=== PATIENT | female | born 1945 | race Caucasian/White ===

== ENCOUNTER → 2017-07-04 | Outpatient (CLI) | payer MEDICARE, OTHER ==
[~2017-07-04] MED LIST: Advil200 M1; Aspirin EC81 MG; B-125000 MC2 PO; CELE200 PO; CIPR500 PO; LEVSOD100 PO; Multiple Vitam1 EAC1 PO; PANT40 PO; ROSU10TA PO; SERT100 PO; VITAMIN D5000 UNIT PO; Valtrex1000 MG PO; Vitamin E400 UNI4
== END | disposition home or self-care (01) ==
LOC: LAB EV 13:20
DX: N39.0 Urinary tract infection, site not specified (principal)
CPT/HCPCS: 87077; 87086; 87186

== ENCOUNTER → 2017-08-03 | Outpatient (CLI) | payer MEDICARE, OTHER ==
[2017-08-03 14:06] LABS: Source, Urine Clean Catch
[2017-08-03 14:25] LABS: Bacteria Mod /hpf; Mucus Light (0-Heavy); Squamous Epithelial Cells Many /hpf (Few)
== END | disposition home or self-care (01) ==
LOC: LAB EV 14:04 → LAB SHORT 14:04
PROVIDERS: General Practice
DX: R30.0 Dysuria (principal)
CPT/HCPCS: 81015; 87077; 87086; 87186

== ENCOUNTER → 2017-08-22 | Outpatient (CLI) | payer MEDICARE, OTHER | LOC: LAB SHORT 14:43 → LAB EV 14:43 | DX: R30.0 Dysuria (principal) | CPT/HCPCS: 87086 ==

== ENCOUNTER → 2017-10-01 | Outpatient (CLI) | END | disposition home or self-care (01) ==

== ENCOUNTER → 2018-04-24 | Outpatient (CLI) | payer MEDICARE, OTHER ==
[2018-04-25 09:27] LABS: Candida species (DNA Probe) Negative (NEGATIVE); G. vaginalis (DNA Probe) Negative (NEGATIVE); T. vaginalis (DNA Probe) Negative (NEGATIVE)
== END | disposition home or self-care (01) ==
LOC: LAB EV 13:18 → LAB SHORT 13:18
PROVIDERS: Physician Assistant
DX: N76.0 Acute vaginitis (principal)
CPT/HCPCS: 87077; 87086; 87186; 87480; 87510; 87660

== ENCOUNTER 2018-05-31 09:44 | Day surgery (SDC) | payer MEDICARE, OTHER ==
[~2018-05-31] VITALS: Ht 165.1 cm; Wt 99.3 kg
[~2018-05-31 09:44] MED LIST changes: +Ambien5 MG PO; +Aspirin EC81 MG PO; +Neurontin300 MG PO; +ROSU5 PO
[2018-05-31] MEDS ORDERED: NITR100CA (10:59)
== END 2018-05-31 12:15 | disposition home or self-care (01) ==
LOC: ORSCSDS 09:44
PROVIDERS: Internal Medicine Gastroenterology
PROC: 0DBL8ZX Excision of Transverse Colon, Via Natural or Artificial Opening Endoscopic, Diagnostic (ICD-10-PCS; principal; 2018-05-31 11:00)
DX: Z86.010 Personal history of colon polyps (principal); D12.3 Benign neoplasm of transverse colon; K64.8 Other hemorrhoids; K57.30 Diverticulosis of large intestine without perforation or abscess without bleeding; G47.33 Obstructive sleep apnea (adult) (pediatric); M79.7 Fibromyalgia; E03.9 Hypothyroidism, unspecified; F32.9 Major depressive disorder, single episode, unspecified; K76.0 Fatty (change of) liver, not elsewhere classified; G25.81 Restless legs syndrome; Z79.82 Long term (current) use of aspirin; Z79.899 Other long term (current) drug therapy
CPT/HCPCS: 88305; J7120

== ENCOUNTER → 2018-06-06 | Outpatient (CLI) | payer MEDICARE, OTHER ==
[~2018-06-06] MED LIST changes: +NITR100CA
[2018-06-06 11:07] LABS: Source, Urine Clean Catch
[2018-06-06 11:20] LABS: Appearance, Urine Clear (Clear); Bilirubin, Urine Neg (Neg); Blood, Urine 1+ (Neg); Color, Urine Yellow (P-Yellow); Glucose Qualitative, Urine Neg (Normal); Ketones, Urine Neg (Neg); Leukocyte Esterase, Urine Neg (Neg); Nitrite, Urine Neg (Neg); Protein, Urine Neg (Neg); Specific Gravity, Urine 1.015 (1.003-1.022); Urobilinogen, Urine NORM (Normal); pH, Urine 6.5 (5.0-8.0)
[2018-06-06 11:26] LABS: White Blood Cells, Urine 0-2 /hpf (0-5)
[2018-06-06 11:27] LABS: Bacteria Not Seen /hpf; Squamous Epithelial Cells Few /hpf (Few)
== END | disposition home or self-care (01) ==
LOC: LAB EV 10:50 → LAB FUT 06-04 13:00 → EDSTATUS 06-04 13:00
PROVIDERS: Physician Assistant
DX: R31.21 Asymptomatic microscopic hematuria (principal); Z87.440 Personal history of urinary (tract) infections
CPT/HCPCS: 81001; 87077; 87086; 87186

== ENCOUNTER → 2018-07-11 | Outpatient (CLI) | payer MEDICARE, OTHER | END | disposition home or self-care (01) | LOC: LAB SHORT 11:38 → LAB 11:38 | DX: R30.0 Dysuria (principal) | CPT/HCPCS: 87086 ==

== ENCOUNTER → 2018-08-12 | Outpatient (CLI) | payer MEDICARE, OTHER | END | disposition home or self-care (01) | LOC: LAB SHORT 15:40 → PLD 15:40 | DX: D22.72 Melanocytic nevi of left lower limb, including hip (principal) | CPT/HCPCS: 88305 ==

== ENCOUNTER → 2018-08-19 | Outpatient (CLI) | payer MEDICARE, OTHER | END | disposition home or self-care (01) | LOC: PLD 15:50 → LAB SHORT 15:50 | DX: D17.22 Benign lipomatous neoplasm of skin and subcutaneous tissue of left arm (principal) | CPT/HCPCS: 88304 ==

== ENCOUNTER 2018-10-22 05:57 | Inpatient (IN) | payer MEDICARE, OTHER ==
[~2018-10-22] VITALS: Ht 162.6 cm; Wt 108.0 kg
[~2018-10-22 05:57] MED LIST changes: +VALACYCLOVIR1000 MG PO; +VITAMIN B122500 MC1 PO; +[UNRECOGNIZED DRUG - CODE] PO; +[UNRECOGNIZED DRUG - OTHER] PO
[2018-10-22] MEDS ORDERED: TRAZ50 PO (06:44)
--- NOTE | 2018-10-22 06:58 | NUR ---
History, Chart, Medications and Allergies reviewed before start of procedure. Lungs clear T/O to Auscultation. Patient confirms NPO status and agrees with scheduled surgery. Pre-Op teaching done. Pt verbalizes understanding.
--- NOTE | 2018-10-22 14:20 | NUR ---
DRESSING: PT UP TO WORK WITH PHYSICAL THERAPY. AQUACEL DRESSING SATURATED, CHANGED TO PRESSURE DRESSING PT IS NOTED TO HAVE 2 OOZING SPOTS ON INCISION. PT CLEANED AND NEW LINUS HOSE AND SOCKS PLACED. PT IN RECLINER AFTER THERAPY. POLAR PACK ON. WILL CONT TO MONITOR DRAINAGE.
--- NOTE | 2018-10-22 17:37 | NUR ---
PT HAS BEEN HYPOTENSIVE WITHOUT SYMPTOMS POST OP. PT WORKED WELL WITH THERAPY TO GET UP TO CHAIR AND AMBULATE. PAIN MANAGED WITH SCHEDULED AND PRN MEDS. PT NEERU DIET WELL. HAS NOT VOIDED POST SPINAL ANESTHESIA THIS SHIFT. CONT IV FLUIDS ORDERED. DRESSING CHANGED X1 FOR OOZING POST OP. LABS TO BE DRAWN FOR AM. PAS, TEDS AND POLAR PACK IN PLACE. USES CALL LIGHT APPROPRIATELY NEEDED.
[2018-10-23 04:53] LABS: BASOPHILS ABSOLUTE AUTO 0.09 K/mm3 (0.00-0.23); BASOPHILS PERCENT AUTO 0 % (0-2); EOSINOPHILS ABSOLUTE AUTO 0.06 K/mm3 (0.00-0.68); EOSINOPHILS PERCENT AUTO 0 % (0-6); Hematocrit 31.3 % (33.0-51.0); Hemoglobin 10.4 g/dL (11.5-16.0); IMMATURE GRAN ABSOLUTE AUTO 0.08 K/mm3 (0.00-0.10); IMMATURE GRAN PERCENT AUTO 0 % (0-1); Mean Corpuscular HGB 30.1 pg (26.0-34.0); Mean Corpuscular HGB Conc 33.2 g/dL (31.5-36.5); Mean Corpuscular Volume 91 fL (80-100); Mean Platelet Volume 10.5 fL (9.1-12.4); NEUTROPHILS ABSOLUTE AUTO 7.07 K/mm3 (1.96-9.15); NEUTROPHILS PERCENT AUTO 20 % (41-73); NRBC ABSOLUTE 0.03 K/mm3 (0.00-0.02); NRBC Auto 0.1 /100 WBC (0.0-0.2); Platelet Count 141 K/mm3 (150-400); RDW Coefficient Variation 13.2 % (11.7-14.2); RDW Standard Deviation 43.7 fL (35.1-46.3); Red Blood Cell Count 3.46 M/mm3 (3.80-5.20); White Blood Cell Count 36.29 K/mm3 (4.00-11.30)
[2018-10-23 04:54] LABS: LYMPHOCYTES ABSOLUTE AUTO 26.71 K/mm3 (0.84-5.20); LYMPHOCYTES PERCENT AUTO 74 % (21-46); MONOCYTES ABSOLUTE AUTO 2.28 K/mm3 (0.16-1.47); MONOCYTES PERCENT AUTO 6 % (4-13)
[2018-10-23 05:09] LABS: Anion Gap 3 mmol/L (6-16); Blood Urea Nitrogen 26 mg/dL (8-24); Bun/Creatinine Ratio 31.9 (12.0-20.0); CO2, Blood 28 mmol/L (21-32); Calcium, Blood 8.4 mg/dL (8.5-10.1); Chloride, Blood 110 mmol/L (98-108); Creatinine, Blood 0.82 mg/dL (0.40-1.00); Glomerular Filtration Rate >60 (60-); Glucose, Blood 139 mg/dL (70-99); Magnesium, Blood 2.3 mg/dL (1.6-2.4); Potassium, Blood 4.1 mmol/L (3.5-5.5); Sodium, Blood 141 mmol/L (136-145)
--- NOTE | 2018-10-23 05:58 | NUR ---
SHIFT SUMMARY PT RESTED WELL T/O NIGHT. AAOX4. DISCOMFORT CONTROLLED WITH SCHEDULED TYLENOL / TORADOL + 10MG ROXICODONE Q4-5P. NO NAUSEA/EMESIS. DRESSING TO LEFT HIP C/D/I T/O NIGHT. PT UP TO RESTROOM FREQUENTLY, GOOD PO INTAKE + OUTPUT. IV ABX COMPLETED PER ORDERS. PT RESTING WELL THIS AM. CALL LIGHT IN REACH + PT USES FOR ASSISTANCE.
[2018-10-23 06:16] LABS: BASOPHILS PERCENT MAN 0 % (0-2); EOSINOPHILS PERCENT MAN 0 % (0-6); LYMPHOCYTES ABSOLUTE MAN 27.58 K/mm3 (0.84-5.20); LYMPHOCYTES PERCENT MAN 76 % (21-46); MONOCYTES ABSOLUTE MAN 1.08 K/mm3 (0.16-1.47); MONOCYTES PERCENT MAN 3 % (4-13); NEUTROPHILS ABSOLUTE MAN 7.62 K/mm3 (1.96-9.15); SEG NEUTROPHILS PERCENT MAN 21 % (41-73); TOTAL CELLS COUNTED 100
[2018-10-23] MEDS ORDERED: OXYC5 PO (17:35)
[2018-10-23] MEDS ORDERED: ASPI325 PO (17:35)
--- NOTE | 2018-10-23 17:55 | NUR ---
DISCHARGE CLEARED THERAPY, TOELRATING DIET, STEADY GAIT. SCRIPTS & DRSGS GIVEN. ESCORTED OUT VIA W/C.
== END 2018-10-23 17:55 | disposition home or self-care (01) | DRG 470 ==
LOC: SURS 05:57 → PRE IP 07:30 → SURS 12:20
PROVIDERS: ADMIT Orthopaedic Surgery
PROC: 0SRB0JA Replacement of Left Hip Joint with Synthetic Substitute, Uncemented, Open Approach (ICD-10-PCS; principal; 2018-10-22 07:30)
DX: M16.12 Unilateral primary osteoarthritis, left hip (principal); Z68.41 Body mass index [BMI] 40.0-44.9, adult; E03.9 Hypothyroidism, unspecified; M79.7 Fibromyalgia; G47.33 Obstructive sleep apnea (adult) (pediatric); G25.81 Restless legs syndrome; F32.9 Major depressive disorder, single episode, unspecified; E66.01 Morbid (severe) obesity due to excess calories; Z79.82 Long term (current) use of aspirin; Z88.8 Allergy status to other drugs, medicaments and biological substances
CPT/HCPCS: 36415; 72170; 80048; 83735; 85025; 88300; 97110; 97116; 97162; 97165; 97530; 97535; C1713; C1776; J0171; J0690; J0735; J1100; J1885; J2250; J2405; J2704; J2795; J3010; J7120

== ENCOUNTER → 2019-01-25 | Outpatient (CLI) | payer MEDICARE, OTHER ==
[~2019-01-25] MED LIST changes: +ASPI325 PO; +OXYC5 PO; +TRAZ50 PO
[2019-01-25 14:07] LABS: Adenovirus F 40/41 Not Detected (NOT DETECT); Astrovirus Not Detected (NOT DETECT); Campylobacter Sp Not Detected (NOT DETECT); Cryptosporidium Not Detected (NOT DETECT); Cyclospora Cayetanensis Not Detected (NOT DETECT); E. Coli O157 Not Detected (NOT DETECT); Entamoeba Histolytica Not Detected (NOT DETECT); Enteroaggregative E. coli-EAEC Not Detected (NOT DETECT); Enteropathogenic E. coli-EPEC Not Detected (NOT DETECT); Enterotoxigenic E. coli-ETEC Not Detected (NOT DETECT); Giardia Lamblia Not Detected (NOT DETECT); Norovirus GI/GII Not Detected (NOT DETECT); Plesiomonas Shigelloides Not Detected (NOT DETECT); Rotavirus A Not Detected (NOT DETECT); Salmonella Sp Not Detected (NOT DETECT); Sapovirus Not Detected (NOT DETECT); Shiga Toxin-prod E. coli-STEC Not Detected (NOT DETECT); Shigella/Enteroin E. coli-EIEC Not Detected (NOT DETECT); Vibrio Cholerae Not Detected (NOT DETECT); Vibrio Sp Not Detected (NOT DETECT); Yersinia Enterocolitica Not Detected (NOT DETECT)
== END | disposition home or self-care (01) ==
LOC: OLS 10:30 → LAB SHORT 10:30
DX: R19.7 Diarrhea, unspecified (principal)
CPT/HCPCS: 0097U

== ENCOUNTER → 2019-11-03 | Outpatient (CLI) | payer MEDICARE, OTHER ==
[2019-11-03 09:58] LABS: BASOPHILS ABSOLUTE AUTO 0.04 K/mm3 (0.00-0.23); BASOPHILS PERCENT AUTO 1 % (0-2); EOSINOPHILS ABSOLUTE AUTO 0.12 K/mm3 (0.00-0.68); EOSINOPHILS PERCENT AUTO 2 % (0-6); Hematocrit 41.4 % (33.0-51.0); Hemoglobin 14.4 g/dL (11.5-16.0); IMMATURE GRAN ABSOLUTE AUTO 0.02 K/mm3 (0.00-0.10); IMMATURE GRAN PERCENT AUTO 0 % (0-1); LYMPHOCYTES ABSOLUTE AUTO 2.47 K/mm3 (0.84-5.20); LYMPHOCYTES PERCENT AUTO 37 % (21-46); MONOCYTES ABSOLUTE AUTO 0.41 K/mm3 (0.16-1.47); MONOCYTES PERCENT AUTO 6 % (4-13); Mean Corpuscular HGB 28.7 pg (26.0-34.0); Mean Corpuscular HGB Conc 34.8 g/dL (31.5-36.5); Mean Corpuscular Volume 83 fL (80-100); Mean Platelet Volume 10.8 fL (9.1-12.4); NEUTROPHILS ABSOLUTE AUTO 3.69 K/mm3 (1.96-9.15); NEUTROPHILS PERCENT AUTO 55 % (41-73); Platelet Count 111 K/mm3 (150-400); RDW Coefficient Variation 12.8 % (11.7-14.2); RDW Standard Deviation 38.4 fL (35.1-46.3); Red Blood Cell Count 5.01 M/mm3 (3.80-5.20); White Blood Cell Count 6.75 K/mm3 (4.00-11.30)
[2019-11-03 10:05] LABS: Alanine Aminotransfer (ALT/SGP 25 U/L (12-78); Albumin, Blood 3.6 g/dL (3.4-5.0); Albumin/Globulin Ratio 1.2 (0.8-1.8); Alk Phos 57 U/L (50-136); Anion Gap 6 mmol/L (6-16); Aspartate Aminotrans (AST/SGOT 17 U/L (12-37); Blood Urea Nitrogen 17 mg/dL (8-24); Bun/Creatinine Ratio 24.7 (12.0-20.0); CO2, Blood 26 mmol/L (21-32); Calcium, Blood 8.5 mg/dL (8.5-10.1); Chloride, Blood 109 mmol/L (98-108); Creatinine, Blood 0.69 mg/dL (0.40-1.00); Globulin, Blood 2.9 g/dL (2.2-4.0); Glomerular Filtration Rate >60 (60-); Glucose, Blood 91 mg/dL (70-99); Potassium, Blood 4.2 mmol/L (3.5-5.5); Sodium, Blood 141 mmol/L (136-145); Total Protein, Blood 6.5 g/dL (6.4-8.2)
== END | disposition home or self-care (01) ==
LOC: LAB 09:36 → LAB SHORT 09:36
PROVIDERS: Registered Nurse Oncology
DX: C91.10 Chronic lymphocytic leukemia of B-cell type not having achieved remission (principal)
CPT/HCPCS: 80053; 85025

== ENCOUNTER 2021-12-27 08:16 | Day surgery (SDC) | payer MEDICARE, OTHER ==
[~2021-12-27] VITALS: Ht 162.6 cm; Wt 95.0 kg
[~2021-12-27 08:16] MED LIST changes: +Aspir 8181 MG PO; +CO Q10100 MG PO; +Celebrex200 MG PO; +D MANNOSE PO; +EUTHYROX125 MCG PO; +GABA300 PO; +Sinemet 25-1001 EACH PO
--- NOTE | 2021-12-27 14:36 | NUR ---
PT AND S/O VERBALIZES UNDERSTANDING WRITTEN AND VERBAL INSTRUCTIONS. VSS. NADN. PT IV DC'D. CATH INTACT. PRESSURE DSG APPLIED. PT SUPRAPUBIC SITE IS CLEAR. NO BLEEDING NOTED.PT DC TO HOME VIA S/O BY ADRIANA.
== END 2021-12-27 14:40 | disposition home or self-care (01) ==
LOC: MHTC 08:16
DX: R33.9 Retention of urine, unspecified (principal); G20 Parkinson's disease; I10 Essential (primary) hypertension; E78.5 Hyperlipidemia, unspecified; M19.90 Unspecified osteoarthritis, unspecified site; E03.9 Hypothyroidism, unspecified; Z88.8 Allergy status to other drugs, medicaments and biological substances; Z88.1 Allergy status to other antibiotic agents; Z79.82 Long term (current) use of aspirin; Z79.899 Other long term (current) drug therapy; Z79.890 Hormone replacement therapy
CPT/HCPCS: 51102; 76937; 99152; 99153; C1769; J2250; J3010; J7030; J7040; Q9967

== ENCOUNTER → 2022-04-10 | Outpatient (CLI) | payer MEDICARE, OTHER | LOC: LAB SHORT 12:00 → LAB 12:00 | DX: K13.79 Other lesions of oral mucosa (principal) | CPT/HCPCS: 87070; 87205 ==

== ENCOUNTER 2022-05-11 20:15 | Inpatient (IN) | payer MEDICARE ==
[~2022-05-11] VITALS: Ht 162.6 cm; Wt 72.6 kg
[2022-05-11 21:15] LABS: Albumin, Blood 2.3 g/dL (3.4-5.0); Bilirubin, Total 0.8 mg/dL (0.1-1.0); Bun/Creatinine Ratio 20.2 (12.0-20.0); Creatinine, Blood 0.5 mg/dL (0.40-1.00); Globulin, Blood 2.3 g/dL (2.2-4.0); Potassium, Blood 3.2 mmol/L (3.5-5.5); Total Protein, Blood 4.6 g/dL (6.4-8.2)
[2022-05-11 21:23] LABS: Hematocrit 36.8 % (33.0-51.0); RDW Coefficient Variation 12.3 % (11.7-14.2)
[2022-05-11 21:37] LABS: BASOPHILS ABSOLUTE AUTO 0.03 K/mm3 (0.00-0.23); BASOPHILS PERCENT AUTO 1 % (0-2); EOSINOPHILS ABSOLUTE AUTO 0.08 K/mm3 (0.00-0.68); EOSINOPHILS PERCENT AUTO 2 % (0-6); IMMATURE GRAN ABSOLUTE AUTO 0.04 K/mm3 (0.00-0.10); IMMATURE GRAN PERCENT AUTO 1 % (0-1); LYMPHOCYTES ABSOLUTE AUTO 0.86 K/mm3 (0.84-5.20); LYMPHOCYTES PERCENT AUTO 17 % (21-46); MONOCYTES ABSOLUTE AUTO 0.41 K/mm3 (0.16-1.47); MONOCYTES PERCENT AUTO 8 % (4-13); Mean Corpuscular HGB 29.1 pg (26.0-34.0); Mean Corpuscular HGB Conc 35.3 g/dL (31.5-36.5); Mean Corpuscular Volume 83 fL (80-100); NEUTROPHILS ABSOLUTE AUTO 3.53 K/mm3 (1.96-9.15); NEUTROPHILS PERCENT AUTO 71 % (41-73); RDW Standard Deviation 37.2 fL (35.1-46.3); Red Blood Cell Count 4.46 M/mm3 (3.80-5.20); White Blood Cell Count 4.95 K/mm3 (4.00-11.30)
[2022-05-11 21:40] LABS: Mean Platelet Volume 10.6 fL (9.1-12.4)
[2022-05-11 22:05] LABS: Platelet Count 110 K/mm3 (150-400)
[2022-05-11 23:28] LABS: Bicarbonate Venous 27.2 mmol/L (24.0-30.0); PCO2 Venous 35.6 mmHg (38-42); pH Blood Venous 7.48 (7.34-7.37)
[2022-05-12 00:35] LABS: Source, Urine Suprapubic Cath
[2022-05-12 00:50] LABS: Bilirubin, Urine Neg (Neg); Blood, Urine 3+ (Neg); Glucose Qualitative, Urine Neg (Neg); Ketones, Urine 2+ (Neg); Leukocyte Esterase, Urine 2+ (Neg); Nitrite, Urine Neg (Neg); Protein, Urine 1+ (Neg); Urobilinogen, Urine NORM (Normal)
[2022-05-12 01:05] LABS: Appearance, Urine Hazy (Clear); Color, Urine Pale Yellow (P-Yellow)
[2022-05-12 01:07] LABS: Amorphous Light (0-Heavy); Bacteria Many /hpf; Red Blood Cells, Urine 0-2 /hpf (0-2); Squamous Epithelial Cells Few /hpf (Few)
[2022-05-12 14:20] LABS: BASOPHILS ABSOLUTE AUTO 0.02 K/mm3 (0.00-0.23); BASOPHILS PERCENT AUTO 0 % (0-2); EOSINOPHILS ABSOLUTE AUTO 0.08 K/mm3 (0.00-0.68); EOSINOPHILS PERCENT AUTO 2 % (0-6); Hematocrit 37.8 % (33.0-51.0); Hemoglobin 13.6 g/dL (11.5-16.0); IMMATURE GRAN ABSOLUTE AUTO 0.03 K/mm3 (0.00-0.10); IMMATURE GRAN PERCENT AUTO 1 % (0-1); LYMPHOCYTES ABSOLUTE AUTO 0.78 K/mm3 (0.84-5.20); LYMPHOCYTES PERCENT AUTO 14 % (21-46); MONOCYTES ABSOLUTE AUTO 0.34 K/mm3 (0.16-1.47); MONOCYTES PERCENT AUTO 6 % (4-13); Mean Corpuscular HGB 28.9 pg (26.0-34.0); Mean Corpuscular Volume 80 fL (80-100); Mean Platelet Volume 10.6 fL (9.1-12.4); NEUTROPHILS ABSOLUTE AUTO 4.16 K/mm3 (1.96-9.15); NEUTROPHILS PERCENT AUTO 77 % (41-73); Platelet Count 139 K/mm3 (150-400); RDW Coefficient Variation 12.1 % (11.7-14.2); RDW Standard Deviation 35.3 fL (35.1-46.3); White Blood Cell Count 5.41 K/mm3 (4.00-11.30)
[2022-05-12 14:49] LABS: Albumin, Blood 2.9 g/dL (3.4-5.0); Bilirubin, Total 0.6 mg/dL (0.1-1.0); Bun/Creatinine Ratio 31.2 (12.0-20.0); Calcium, Blood 8.6 mg/dL (8.5-10.1); Creatinine, Blood 0.48 mg/dL (0.40-1.00); Globulin, Blood 2.9 g/dL (2.2-4.0); Potassium, Blood 3.7 mmol/L (3.5-5.5); Total Protein, Blood 5.8 g/dL (6.4-8.2)
[2022-05-12] MEDS ORDERED: ASPI81CH PO (16:24)
--- NOTE | 2022-05-12 18:53 | NUR ---
SHIFT SUMMARY- PT IS A X1 NURSE ASSIST-WEAK DUE TO PARKINSON'S-USES WALKER. PT HAS MODERATE PAIN DUE TO FALL 2 DAYS AGO. TORADOL, NORCO, AND TYLENOL ORDERED FOR PAIN. TESSLON PEARLS AND DELSYM ORDERED FOR COUGH. PAIN AND COUGH IMPROVING. SPC PATENT. GI PANEL CANCELED-PT HAD SOFT FORMED BM SMALL THIS SHIFT. PT AAOX4 THIS SHIFT.
[2022-05-13 05:52] LABS: BASOPHILS ABSOLUTE AUTO 0.02 K/mm3 (0.00-0.23); BASOPHILS PERCENT AUTO 1 % (0-2); EOSINOPHILS ABSOLUTE AUTO 0.19 K/mm3 (0.00-0.68); EOSINOPHILS PERCENT AUTO 4 % (0-6); Hematocrit 35.3 % (33.0-51.0); Hemoglobin 12.5 g/dL (11.5-16.0); IMMATURE GRAN ABSOLUTE AUTO 0.02 K/mm3 (0.00-0.10); IMMATURE GRAN PERCENT AUTO 1 % (0-1); LYMPHOCYTES PERCENT AUTO 18 % (21-46); MONOCYTES ABSOLUTE AUTO 0.46 K/mm3 (0.16-1.47); MONOCYTES PERCENT AUTO 10 % (4-13); Mean Corpuscular HGB 28.9 pg (26.0-34.0); Mean Corpuscular HGB Conc 35.4 g/dL (31.5-36.5); Mean Corpuscular Volume 82 fL (80-100); Mean Platelet Volume 10.1 fL (9.1-12.4); NEUTROPHILS ABSOLUTE AUTO 2.93 K/mm3 (1.96-9.15); NEUTROPHILS PERCENT AUTO 66 % (41-73); Platelet Count 152 K/mm3 (150-400); RDW Coefficient Variation 12.1 % (11.7-14.2); RDW Standard Deviation 36.7 fL (35.1-46.3); Red Blood Cell Count 4.32 M/mm3 (3.80-5.20); White Blood Cell Count 4.42 K/mm3 (4.00-11.30)
[2022-05-13 06:04] LABS: Bun/Creatinine Ratio 23.8 (12.0-20.0); Calcium, Blood 8.7 mg/dL (8.5-10.1); Creatinine, Blood 0.5 mg/dL (0.40-1.00); Potassium, Blood 3.7 mmol/L (3.5-5.5)
--- NOTE | 2022-05-13 06:52 | NUR ---
NEURO AOX4, pupils 4mm bilateral, brisk and PERLLA. Admitted for syncopy. Not dizzy while lying in bed, no ambulation during shift. Resp room air Lung sounds clear CV Telemetry Normal SR with episodes of tachycardia while awake GI Suprapubic prado in place with yellow clear urine. Prado bag changed dt to leakage. Skin skin intact
--- NOTE | 2022-05-13 17:41 | NUR ---
SHIFT SUMMARY: PATIENT A&OX4. PLEASANT AND COOPERATIVE c CARE. USES CALL LIGHT APPROPRIATELY AND ABLE TO ADVOCATE FOR HER NEEDS. AT BEGINNING OF SHIFT, PATIENT REPORTS OF NAUSEA BUT NO VOMITING. MEDICATED X1 c ZOFRAN 4 MG IV. PATIENT REPORTS OF ADEQUATE RELIEF. AT AROUND 0950'S PATIENT REPORTS OF NECK, BACK AND HIP PAIN /10. MEDICATED X1 c NORCO. PATIENT REPORTS OF ADEQUATE RELIEF PAIN DOWN 10. DENIES CP/CHEST DISCOMFORT. PATIENT WAS ON TELE SR IN THE 90'S BPM PER BUFFET SERVERABRAHAM. TELE WAS DC'D TODAY PER THERESE. PATIENT TOLERATED SITTING UP IN THE CHAIR FOR ABOUT 2 HRS AND REQUESTED TO BE BACK IN BED. PATIENT 1 ASSIST c FWW PIVOT TO CHAIR. PATIENT HAS CHRONIC SUPRAPUBIC CATHETER, PATENT DRAINING TO GRAVITY c YELLOW URINE. VITAL SIGNS REVIEWED. IV TO R WRIST SALINE LOCKED. BED ALARM ON FOR SAFETY. CALL LIGHT IN REACH.
--- NOTE | 2022-05-14 04:49 | NUR ---
A/OX4; CALM AND COOPERATIVE. 1X ASSIST WITH WALKER. SUPRAPUBIC CATH PATENT. BLANCHABLE REDNESS TO COCCYX; FREQUENT REPOSITIONING ENCOURAGED. C/O FEELING MILDLY NAUSEATED; DECLINED OFFERED ZOFRAN. C/O BACK, NECK, AND HIP PAIN; PRN NORCO GIVEN PER ORDERS. HELPFUL PER PATIENT. FLUIDS ENCOURAGED. SLEEP PROMOTED. BED ALARM SET. CALL LIGHT IN REACH; ENCOURAGED TO MAKE NEEDS KNOWN.
[2022-05-14 07:14] LABS: BASOPHILS ABSOLUTE AUTO 0.02 K/mm3 (0.00-0.23); BASOPHILS PERCENT AUTO 1 % (0-2); EOSINOPHILS ABSOLUTE AUTO 0.24 K/mm3 (0.00-0.68); EOSINOPHILS PERCENT AUTO 6 % (0-6); Hematocrit 35.1 % (33.0-51.0); Hemoglobin 12.4 g/dL (11.5-16.0); IMMATURE GRAN ABSOLUTE AUTO 0.02 K/mm3 (0.00-0.10); IMMATURE GRAN PERCENT AUTO 1 % (0-1); LYMPHOCYTES ABSOLUTE AUTO 1.06 K/mm3 (0.84-5.20); LYMPHOCYTES PERCENT AUTO 25 % (21-46); MONOCYTES ABSOLUTE AUTO 0.48 K/mm3 (0.16-1.47); MONOCYTES PERCENT AUTO 11 % (4-13); Mean Corpuscular HGB Conc 35.3 g/dL (31.5-36.5); Mean Corpuscular Volume 82 fL (80-100); Mean Platelet Volume 10.4 fL (9.1-12.4); NEUTROPHILS ABSOLUTE AUTO 2.51 K/mm3 (1.96-9.15); NEUTROPHILS PERCENT AUTO 58 % (41-73); Platelet Count 172 K/mm3 (150-400); RDW Coefficient Variation 12.3 % (11.7-14.2); RDW Standard Deviation 37.2 fL (35.1-46.3); Red Blood Cell Count 4.27 M/mm3 (3.80-5.20); White Blood Cell Count 4.33 K/mm3 (4.00-11.30)
[2022-05-14 07:23] LABS: Bun/Creatinine Ratio 33.7 (12.0-20.0); Calcium, Blood 8.7 mg/dL (8.5-10.1); Creatinine, Blood 0.48 mg/dL (0.40-1.00); Potassium, Blood 3.4 mmol/L (3.5-5.5)
--- NOTE | 2022-05-14 17:34 | NUR ---
SHIFT SUMMARY NO ACUTE CHANGES DURING SHIFT. PT ALERT AND ORIENTED, CALLS APPROPRIATELY. PT CONTINUES IV ABX, LEVAQUIN ADDED TODAY. FAMILY AT BEDSIDE THROUGHOUT DAY. POSSIBLE D/C TO FACILITY WHEN MEDICALLY CLEARED. WILL CONTINUE TO MONITOR. CALL LIGHT WITHIN REACH.
--- NOTE | 2022-05-15 03:24 | NUR ---
SHIFT SUMMARY: NO CHANGES THROUGHOUT SHIFT. PATIENT IS A&OX4. VS ARE WNL AND IS ON RA. PATIENT REPORTED 3/10 PAIN AT BEGINNING OF SHIFT AND HAS BEEN MANAGED WITH THE PRN NORCO. PATIENT IS A MINIMAL ASSIST WITH AMBULATION. HER SUPERPUBIC CHRONIC CATHETER IS DRAINING PER GRAVITY WITH NO KINKS IN TUBING. PATIENT IS TOLERATING PO INTAKE. PATIENT WILL CONTINUE TO HAVE PT AND IV ABX WELL PO LEVAQUIN. CALLS APPROPRIATELY. CALL LIGHT WITHIN REACH.
[2022-05-15 05:09] LABS: BASOPHILS ABSOLUTE AUTO 0.03 K/mm3 (0.00-0.23); BASOPHILS PERCENT AUTO 1 % (0-2); EOSINOPHILS ABSOLUTE AUTO 0.28 K/mm3 (0.00-0.68); EOSINOPHILS PERCENT AUTO 6 % (0-6); Hematocrit 36.3 % (33.0-51.0); Hemoglobin 12.8 g/dL (11.5-16.0); IMMATURE GRAN ABSOLUTE AUTO 0.02 K/mm3 (0.00-0.10); IMMATURE GRAN PERCENT AUTO 0 % (0-1); LYMPHOCYTES PERCENT AUTO 34 % (21-46); MONOCYTES ABSOLUTE AUTO 0.53 K/mm3 (0.16-1.47); MONOCYTES PERCENT AUTO 11 % (4-13); Mean Corpuscular HGB 28.7 pg (26.0-34.0); Mean Corpuscular HGB Conc 35.3 g/dL (31.5-36.5); Mean Corpuscular Volume 81 fL (80-100); NEUTROPHILS ABSOLUTE AUTO 2.27 K/mm3 (1.96-9.15); NEUTROPHILS PERCENT AUTO 48 % (41-73); Platelet Count 192 K/mm3 (150-400); RDW Standard Deviation 35.7 fL (35.1-46.3); Red Blood Cell Count 4.46 M/mm3 (3.80-5.20); White Blood Cell Count 4.73 K/mm3 (4.00-11.30)
[2022-05-15 06:55] LABS: Creatinine, Blood 0.54 mg/dL (0.40-1.00); Potassium, Blood 3.6 mmol/L (3.5-5.5); Thyroid Stimulating Hormone 1.09 uIU/mL (0.360-4.800)
--- NOTE | 2022-05-16 05:28 | NUR ---
SHIFT SUMMARY 76 YR F ADMITTED ON 05/11/22 FOR UTI/DEHYDRATION. FULL CODE. NO ACUTE CHANGES THIS SHIFT. PT HAS SLEPT SINCE EVENING MEDS AND HAS HAD NO C/O PAIN OR DISCOMFORT. SUPRAPUBIC CATHETER ID PATENT AND DRAINING TO GRAVITY.
--- NOTE | 2022-05-16 16:05 | NUR ---
Received bedside report from ongoing nurse. Pt aslssp in bed/resting comfortably. VS stable. at bedside.Concerns of her syncope episode at home. Pt is wondering " will she be going to rehab or going back home. Pt also has physical therapy/ occupational work with her at bedside.
--- NOTE | 2022-05-17 04:47 | NUR ---
SHIFT SUMMARY ADMITTED FOR UTI/DEHYDRATION. FULL CODE. SUPRAPUBIC CATHETER IN PLACE FOR RETENTION. SHE LIVES WITH SPOUSE. SHE WILL LIKELY DC HOME W/HH WHEN STABLE. SHE IS ON RA, CARDIAC DIET. LOOSE FREQUENT BM'S REPORTED. SHE IS A 1 ASSIST W/FWW - BRP. FREQUENT FALLS AT HOME. DIZZY SPELLS REPORTED FOR PAST YEAR. HX OF PARKINSONS
[2022-05-17 05:45] LABS: BASOPHILS ABSOLUTE AUTO 0.05 K/mm3 (0.00-0.23); BASOPHILS PERCENT AUTO 1 % (0-2); EOSINOPHILS PERCENT AUTO 5 % (0-6); Hematocrit 36.5 % (33.0-51.0); Hemoglobin 12.6 g/dL (11.5-16.0); IMMATURE GRAN ABSOLUTE AUTO 0.06 K/mm3 (0.00-0.10); IMMATURE GRAN PERCENT AUTO 1 % (0-1); LYMPHOCYTES ABSOLUTE AUTO 2.07 K/mm3 (0.84-5.20); LYMPHOCYTES PERCENT AUTO 36 % (21-46); MONOCYTES PERCENT AUTO 10 % (4-13); Mean Corpuscular HGB 28.6 pg (26.0-34.0); Mean Corpuscular HGB Conc 34.5 g/dL (31.5-36.5); Mean Corpuscular Volume 83 fL (80-100); NEUTROPHILS ABSOLUTE AUTO 2.67 K/mm3 (1.96-9.15); NEUTROPHILS PERCENT AUTO 47 % (41-73); Platelet Count 242 K/mm3 (150-400); RDW Coefficient Variation 12.1 % (11.7-14.2); RDW Standard Deviation 36.7 fL (35.1-46.3); Red Blood Cell Count 4.41 M/mm3 (3.80-5.20); White Blood Cell Count 5.75 K/mm3 (4.00-11.30)
[2022-05-17 06:16] LABS: Albumin, Blood 2.7 g/dL (3.4-5.0); Bilirubin, Total 0.5 mg/dL (0.1-1.0); Bun/Creatinine Ratio 31.8 (12.0-20.0); Calcium, Blood 9.1 mg/dL (8.5-10.1); Creatinine, Blood 0.57 mg/dL (0.40-1.00); Globulin, Blood 2.8 g/dL (2.2-4.0); Potassium, Blood 3.7 mmol/L (3.5-5.5); Total Protein, Blood 5.5 g/dL (6.4-8.2)
[2022-05-17] MEDS ORDERED: NITR100CA PO ×2 (12:03→12:07)
[2022-05-17] MEDS ORDERED: LACT PO ×2 (12:06→12:08)
--- NOTE | 2022-05-17 13:54 | NUR ---
D/C PT EDUCATED WITH ABOUT NEW MEDS/PAPERWORK. NEW MEDS FAXED TO PT PHARM. IV REMOVED. MANCERA DRAINING AND INTACT. WHEELCHAIR TRANSPORTED TO [facility] TO MEET SPOUSE. ALL BELONINGS IN HAND.
== END 2022-05-17 13:11 | disposition home health service (06) | DRG 56 ==
LOC: ER 20:15 → ERHOLD 20:16 → MEDS 05-12 13:27
PROVIDERS: Emergency Medicine; Hospitalist; Internal Medicine; ADMIT Internal Medicine
DX: G90.3 Multi-system degeneration of the autonomic nervous system (principal); A41.9 Sepsis, unspecified organism; N39.0 Urinary tract infection, site not specified; G20 Parkinson's disease; E03.9 Hypothyroidism, unspecified; I10 Essential (primary) hypertension; E87.6 Hypokalemia; E78.5 Hyperlipidemia, unspecified; R19.7 Diarrhea, unspecified; I73.9 Peripheral vascular disease, unspecified; M79.7 Fibromyalgia; I65.21 Occlusion and stenosis of right carotid artery; B95.7 Other staphylococcus as the cause of diseases classified elsewhere; K14.0 Glossitis; Z96.643 Presence of artificial hip joint, bilateral; Z96.652 Presence of left artificial knee joint; Z88.1 Allergy status to other antibiotic agents; Z88.8 Allergy status to other drugs, medicaments and biological substances; Z90.721 Acquired absence of ovaries, unilateral; Z98.890 Other specified postprocedural states; Z90.710 Acquired absence of both cervix and uterus; Z85.6 Personal history of leukemia; Z98.42 Cataract extraction status, left eye; Z86.16 Personal history of COVID-19
CPT/HCPCS: 36415; 80048; 80053; 81001; 82803; 83605; 83735; 84145; 84443; 84484; 85025; 87040; 87077; 87086; 87186; 93005; 93010; 93880; 97110; 97116; 97162; 97166; 97530; 97535; 99285-25; A9270; J0696; J1650; J1885; J2405

== ENCOUNTER → 2022-05-22 | Outpatient (CLI) | payer MEDICARE ==
[~2022-05-22] MED LIST changes: +ASPI81CH PO; +LACT PO; +NITR100CA PO
== END ==
LOC: LAB SHORT 11:30 → LAB 11:30
DX: B37.0 Candidal stomatitis (principal)
CPT/HCPCS: 87102

== ENCOUNTER → 2022-08-16 | Outpatient (CLI) | payer MEDICARE, OTHER | END | disposition home or self-care (01) | LOC: LAB SHORT 10:16 → LAB 10:16 | DX: L08.9 Local infection of the skin and subcutaneous tissue, unspecified (principal) | CPT/HCPCS: 87070; 87205 ==

== ENCOUNTER 2022-10-02 08:54 | Emergency (ER) | payer MEDICARE, OTHER ==
[~2022-10-02] VITALS: Ht 162.6 cm; Wt 79.4 kg
[2022-10-02 09:21] VITALS: BP 138/85
[2022-10-02 10:20] LABS: Source, Urine Clean Catch
[2022-10-02 10:26] LABS: Bilirubin, Urine Neg (Neg); Blood, Urine 4+ (Neg); Glucose Qualitative, Urine Neg (Neg); Ketones, Urine Neg (Neg); Leukocyte Esterase, Urine 3+ (Neg); Nitrite, Urine Pos (Neg); Protein, Urine 1+ (Neg); Urobilinogen, Urine NORM (Normal)
[2022-10-02 10:32] LABS: Appearance, Urine Hazy (Clear); Color, Urine Yellow (P-Yellow)
[2022-10-02 10:33] LABS: Bacteria Few /hpf; Squamous Epithelial Cells Rare /hpf (Few)
[2022-10-02] MEDS ORDERED: Cipro500 MG PO (10:53)
== END 2022-10-02 11:05 | disposition home or self-care (01) ==
LOC: ER 08:54
PROVIDERS: Physician Assistant
DX: T83.510A Infection and inflammatory reaction due to cystostomy catheter, initial encounter (principal); G20 Parkinson's disease; E03.9 Hypothyroidism, unspecified; Z85.6 Personal history of leukemia; Z88.8 Allergy status to other drugs, medicaments and biological substances; Z88.1 Allergy status to other antibiotic agents; Z79.82 Long term (current) use of aspirin; Z79.899 Other long term (current) drug therapy; X58.XXXA Exposure to other specified factors, initial encounter
CPT/HCPCS: 81001

== ENCOUNTER → 2022-12-23 | Outpatient (CLI) | payer MEDICARE, OTHER ==
[~2022-12-23] MED LIST changes: +Cipro500 MG PO
== END | disposition home or self-care (01) ==
LOC: LAB SHORT 11:09 → LAB 11:09
DX: N39.0 Urinary tract infection, site not specified (principal)
CPT/HCPCS: 87086

== ENCOUNTER → 2023-01-16 | Outpatient (CLI) | payer MEDICARE, OTHER ==
[2023-01-17 14:32] LABS: Adenovirus F 40/41 Not Detected (NOT DETECT); Astrovirus Not Detected (NOT DETECT); Campylobacter Sp Not Detected (NOT DETECT); Cryptosporidium Not Detected (NOT DETECT); Cyclospora Cayetanensis Not Detected (NOT DETECT); E. Coli O157 Not Detected (NOT DETECT); Entamoeba Histolytica Not Detected (NOT DETECT); Enteroaggregative E. coli-EAEC Not Detected (NOT DETECT); Enteropathogenic E. coli-EPEC Not Detected (NOT DETECT); Enterotoxigenic E. coli-ETEC Not Detected (NOT DETECT); Giardia Lamblia Not Detected (NOT DETECT); Norovirus GI/GII Not Detected (NOT DETECT); Plesiomonas Shigelloides Not Detected (NOT DETECT); Rotavirus A Not Detected (NOT DETECT); Salmonella Sp Not Detected (NOT DETECT); Sapovirus Not Detected (NOT DETECT); Shiga Toxin-prod E. coli-STEC Not Detected (NOT DETECT); Shigella/Enteroin E. coli-EIEC Not Detected (NOT DETECT); Vibrio Cholerae Not Detected (NOT DETECT); Vibrio Sp Not Detected (NOT DETECT); Yersinia Enterocolitica Not Detected (NOT DETECT)
== END | disposition home or self-care (01) ==
LOC: LAB 11:28 → LAB SHORT 11:28
PROVIDERS: Family Medicine
DX: A09 Infectious gastroenteritis and colitis, unspecified (principal)
CPT/HCPCS: 87507

== ENCOUNTER → 2023-04-25 | Outpatient (CLI) | payer MEDICARE, OTHER ==
[2023-04-25 16:07] LABS: Source, Urine Foley catheter
[2023-04-25 17:24] LABS: Appearance, Urine Hazy (Clear); Bilirubin, Urine Neg (Neg); Blood, Urine 5+ (Neg); Glucose Qualitative, Urine Neg (Neg); Ketones, Urine Neg (Neg); Leukocyte Esterase, Urine 3+ (Neg); Nitrite, Urine Neg (Neg); Protein, Urine 2+ (Neg); Specific Gravity, Urine 1.015 (1.003-1.022); Urobilinogen, Urine NORM (Normal)
[2023-04-25 17:35] LABS: Color, Urine Pale Yellow (P-Yellow)
[2023-04-25 17:36] LABS: White Blood Cells, Urine TNTC /hpf (0-5)
[2023-04-25 17:42] LABS: Bacteria Mod /hpf; Squamous Epithelial Cells Few /hpf (Few); Transitional Epithelial Cells Rare /hpf (0-Rare)
== END ==
LOC: LAB SHORT 14:30 → LAB 14:30
PROVIDERS: Urology
DX: N39.0 Urinary tract infection, site not specified (principal); Z46.6 Encounter for fitting and adjustment of urinary device
CPT/HCPCS: 81001; 87077; 87086; 87186

== ENCOUNTER → 2023-05-25 | Outpatient (CLI) | payer MEDICARE, OTHER ==
[2023-05-25 14:14] LABS: BASOPHILS ABSOLUTE AUTO 0.05 K/mm3 (0.00-0.23); BASOPHILS PERCENT AUTO 1 % (0-2); EOSINOPHILS ABSOLUTE AUTO 0.25 K/mm3 (0.00-0.68); EOSINOPHILS PERCENT AUTO 4 % (0-6); Hematocrit 38.4 % (33.0-51.0); Hemoglobin 13.2 g/dL (11.5-16.0); IMMATURE GRAN ABSOLUTE AUTO 0.02 K/mm3 (0.00-0.10); IMMATURE GRAN PERCENT AUTO 0 % (0-1); LYMPHOCYTES PERCENT AUTO 31 % (21-46); MONOCYTES ABSOLUTE AUTO 0.53 K/mm3 (0.16-1.47); MONOCYTES PERCENT AUTO 9 % (4-13); Mean Corpuscular HGB 30.5 pg (26.0-34.0); Mean Corpuscular HGB Conc 34.4 g/dL (31.5-36.5); Mean Corpuscular Volume 89 fL (80-100); Mean Platelet Volume 10.1 fL (9.1-12.4); NEUTROPHILS ABSOLUTE AUTO 3.32 K/mm3 (1.96-9.15); NEUTROPHILS PERCENT AUTO 55 % (41-73); Platelet Count 172 K/mm3 (150-400); RDW Standard Deviation 45.5 fL (35.1-46.3); Red Blood Cell Count 4.33 M/mm3 (3.80-5.20); White Blood Cell Count 6.07 K/mm3 (4.00-11.30)
[2023-05-25 14:39] LABS: Percent Saturation 32.2 % (15.0-50.0); Thyroid Stimulating Hormone 4.57 uIU/mL (0.360-4.800)
[2023-05-26 08:11] LABS: A/G RATIO 2.2 (1.2-2.2); BILIRUBIN, TOTAL 0.4 mg/dL (0.0-1.2); CALCIUM, SERUM 9.7 mg/dL (8.7-10.3); CREATININE, SERUM 0.62 mg/dL (0.57-1.00); GLOBULIN, TOTAL 1.7 g/dL (1.5-4.5); POTASSIUM, SERUM 4.6 mmol/L (3.5-5.2); PROTEIN, TOTAL, SERUM 5.5 g/dL (6.0-8.5)
[2023-05-29 22:23] LABS: IMMUNOGLOBULIN A 43 mg/dL (68-408); IMMUNOGLOBULIN G 388 mg/dL (768-1632); IMMUNOGLOBULIN M 19 mg/dL (35-263)
[2023-05-29 22:29] LABS: ALPHA 1 GLOBULIN 0.29 g/dL (0.19-0.46); ALPHA 2 GLOBULIN 0.59 g/dL (0.48-1.05); BETA GLOBULIN 0.55 g/dL (0.48-1.10); GAMMA 0.37 g/dL (0.62-1.51); IMMUNOFIXATION REFLEX IFE Done; TOTAL PROTEIN,SERUM 5.4 g/dL (6.3-8.2)
== END ==
LOC: LAB SHORT 12:37 → LAB 12:37
PROVIDERS: Family Medicine
DX: C91.Z0 Other lymphoid leukemia not having achieved remission (principal); E03.8 Other specified hypothyroidism; E16.2 Hypoglycemia, unspecified; E53.8 Deficiency of other specified B group vitamins; E55.9 Vitamin D deficiency, unspecified; E61.1 Iron deficiency; E78.2 Mixed hyperlipidemia
CPT/HCPCS: 80053; 82306; 82607; 82728; 82746; 82784; 83036; 83521; 83540; 83550; 83615; 84155; 84165; 84443; 85025; 86334

== ENCOUNTER → 2023-06-04 | Outpatient (CLI) | payer MEDICARE, OTHER ==
[2023-06-04 14:01] LABS: Source, Urine Foley catheter
[2023-06-04 15:10] LABS: Appearance, Urine Hazy (Clear); Bilirubin, Urine Neg (Neg); Blood, Urine 5+ (Neg); Color, Urine Yellow (P-Yellow); Glucose Qualitative, Urine Neg (Neg); Ketones, Urine Neg (Neg); Leukocyte Esterase, Urine 3+ (Neg); Nitrite, Urine Neg (Neg); Protein, Urine 3+ (Neg); Urobilinogen, Urine NORM (Normal)
[2023-06-04 15:17] LABS: Bacteria Mod /hpf; Squamous Epithelial Cells Few /hpf (Few); Transitional Epithelial Cells Rare /hpf (0-Rare); White Blood Cells, Urine TNTC /hpf (0-5)
== END | disposition home or self-care (01) ==
LOC: LAB 12:48 → LAB SHORT 12:48
PROVIDERS: Urology
DX: N39.0 Urinary tract infection, site not specified (principal)
CPT/HCPCS: 81001; 87077; 87086; 87186

== ENCOUNTER → 2023-06-12 | Outpatient (CLI) | payer MEDICARE, OTHER ==
[2023-06-13 11:43] LABS: Candida species (DNA Probe) Negative (NEGATIVE); G. vaginalis (DNA Probe) Negative (NEGATIVE); T. vaginalis (DNA Probe) Negative (NEGATIVE)
== END ==
LOC: LAB SHORT 15:55 → LAB 15:55
PROVIDERS: Obstetrics & Gynecology
DX: N89.8 Other specified noninflammatory disorders of vagina (principal)
CPT/HCPCS: 87480; 87510; 87660

== ENCOUNTER → 2023-06-14 | Outpatient (CLI) | payer MEDICARE, OTHER ==
[2023-06-14 12:50] LABS: Source, Urine Straight Cath
[2023-06-14 13:52] LABS: Appearance, Urine Hazy (Clear); Bilirubin, Urine Neg (Neg); Blood, Urine 5+ (Neg); Glucose Qualitative, Urine Neg (Neg); Ketones, Urine Neg (Neg); Leukocyte Esterase, Urine 3+ (Neg); Nitrite, Urine Neg (Neg); Protein, Urine 2+ (Neg); Urobilinogen, Urine NORM (Normal); pH, Urine 6.5 (5.0-8.0)
[2023-06-14 14:06] LABS: Color, Urine Pale Yellow (P-Yellow); White Blood Cells, Urine TNTC /hpf (0-5)
[2023-06-14 14:08] LABS: Squamous Epithelial Cells Few /hpf (Few)
[2023-06-14 14:09] LABS: Bacteria Many /hpf; Transitional Epithelial Cells Rare /hpf (0-Rare)
== END ==
LOC: LAB 12:23 → LAB SHORT 12:23
PROVIDERS: Physician Assistant
DX: N39.0 Urinary tract infection, site not specified (principal)
CPT/HCPCS: 81001; 87086

== ENCOUNTER 2023-08-27 12:33 | Inpatient (IN) | payer MEDICARE, OTHER ==
[~2023-08-27] VITALS: Ht 162.6 cm; Wt 74.1 kg
[2023-08-27] MEDS ORDERED: BUPROPION XL150 M1 PO (13:47)
[2023-08-27 14:44] LABS: BASOPHILS ABSOLUTE AUTO 0.04 K/mm3 (0.00-0.23); BASOPHILS PERCENT AUTO 1 % (0-2); EOSINOPHILS PERCENT AUTO 3 % (0-6); Hematocrit 39.1 % (33.0-51.0); Hemoglobin 13.5 g/dL (11.5-16.0); IMMATURE GRAN ABSOLUTE AUTO 0.03 K/mm3 (0.00-0.10); IMMATURE GRAN PERCENT AUTO 0 % (0-1); LYMPHOCYTES ABSOLUTE AUTO 2.26 K/mm3 (0.84-5.20); LYMPHOCYTES PERCENT AUTO 28 % (21-46); MONOCYTES ABSOLUTE AUTO 0.61 K/mm3 (0.16-1.47); MONOCYTES PERCENT AUTO 8 % (4-13); Mean Corpuscular HGB 31.8 pg (26.0-34.0); Mean Corpuscular HGB Conc 34.5 g/dL (31.5-36.5); Mean Corpuscular Volume 92 fL (80-100); Mean Platelet Volume 9.5 fL (9.1-12.4); NEUTROPHILS ABSOLUTE AUTO 4.95 K/mm3 (1.96-9.15); NEUTROPHILS PERCENT AUTO 61 % (41-73); Platelet Count 217 K/mm3 (150-400); RDW Coefficient Variation 13.8 % (11.7-14.2); Red Blood Cell Count 4.24 M/mm3 (3.80-5.20); White Blood Cell Count 8.09 K/mm3 (4.00-11.30)
[2023-08-27 14:45] LABS: Source, Urine Foley catheter
[2023-08-27 15:00] LABS: Appearance, Urine Cloudy (Clear); Bilirubin, Urine Neg (Neg); Blood, Urine 5+ (Neg); Color, Urine Yellow (P-Yellow); Glucose Qualitative, Urine Neg (Neg); Ketones, Urine Neg (Neg); Leukocyte Esterase, Urine 3+ (Neg); Nitrite, Urine Neg (Neg); Protein, Urine 3+ (Neg); Specific Gravity, Urine 1.005 (1.003-1.022); Urobilinogen, Urine NORM (Normal)
[2023-08-27 15:08] LABS: White Blood Cells, Urine TNTC /hpf (0-5)
[2023-08-27 15:09] LABS: Bacteria Many /hpf; Red Blood Cells, Urine 25-50 /hpf (0-2); Squamous Epithelial Cells Rare /hpf (Few)
[2023-08-27 15:32] LABS: Alanine Aminotransfer (ALT/SGP <6 U/L (12-78); Albumin, Blood 3.5 g/dL (3.4-5.0); Albumin/Globulin Ratio 1.1 (0.8-1.8); Alk Phos 134 U/L (50-136); Anion Gap 7 mmol/L (3-11); Aspartate Aminotrans (AST/SGOT 16 U/L (12-37); Bilirubin, Total 0.6 mg/dL (0.1-1.0); Blood Urea Nitrogen 13 mg/dL (8-24); Bun/Creatinine Ratio 20.9 (12.0-20.0); CO2, Blood 32 mmol/L (21-32); Calcium, Blood 9.8 mg/dL (8.5-10.1); Chloride, Blood 106 mmol/L (98-108); Creatinine, Blood 0.62 mg/dL (0.40-1.00); Globulin, Blood 3.1 g/dL (2.2-4.0); Glomerular Filtration Rate 90 (60-); Glucose, Blood 88 mg/dL (70-99); Potassium, Blood 4.1 mmol/L (3.5-5.5); Sodium, Blood 141 mmol/L (136-145); Total Protein, Blood 6.6 g/dL (6.4-8.2)
[2023-08-27] MEDS ORDERED: Piperacillin/Tazobactam Sod 3.375 GM in NS 100 ML IV ONE (16:40)
[2023-08-27] MEDS ORDERED: Aspirin 81 MG Chew PO SCH (17:55)
[2023-08-27] MEDS ORDERED: ALPRAZolam 0.25 MG Tab PO PRN (17:55)
[2023-08-27] MEDS ORDERED: Morphine Sulfate 4 MG/1 ML Injection IV PRN (18:00)
[2023-08-27] MEDS ORDERED: OxyCODONE HCl Soln 20 MG/ML 1 ML Oral SYR PO PRN (18:00)
[2023-08-27] MEDS ORDERED: Sodium Chloride 0.45% 1,000 ML IV SCH (18:40)
--- NOTE | 2023-08-27 18:50 | NUR ---
1839- RECEIVED REPORT FROM FLOYD KUMAR FROM ER. REPORT GIVEN TO BLANCA SUERO RN.
[2023-08-27] MEDS ORDERED: CARBIDOPA-LEVO1 EA17 PO ×2 (19:05→19:24)
[2023-08-27] MEDS ORDERED: ESCI20 PO (19:06)
[2023-08-27] MEDS ORDERED: ALBU90OI INH (19:08)
[2023-08-27] MEDS ORDERED: LEVSOD112 PO (19:08)
[2023-08-27] MEDS ORDERED: ALPR.5 PO (19:08)
[2023-08-27] MEDS ORDERED: Mobic15 MG PO (19:09)
[2023-08-27] MEDS ORDERED: OXYB5 PO (19:10)
[2023-08-27] MEDS ORDERED: BUSP10 PO (19:10)
[2023-08-27 19:12] VITALS: BP 107/65
[2023-08-27] MEDS ORDERED: CARBIDOPA-LEVO1 EA19 PO ×3 (19:22→19:23)
[2023-08-27] MEDS ORDERED: CARBLEV25 PO (19:24)
[2023-08-27] MEDS ORDERED: CARBIDOPA-LEVO1 EA15 PO (19:25)
[2023-08-27] MEDS ORDERED: GABA300 PO (19:28)
[2023-08-27] MEDS ORDERED: GABA300T24 PO (19:28)
[2023-08-27] MEDS ORDERED: MAGNESIUM OXID500 MG PO (19:31)
[2023-08-27] MEDS ORDERED: MIDODRINE HCL10 M6 PO (19:31)
[2023-08-27] MEDS ORDERED: MELATONIN5 M1 PO (19:32)
[2023-08-27] MEDS ORDERED: Gabapentin 300 MG Cap PO SCH (20:00)
[2023-08-27] MEDS ORDERED: Rosuvastatin Calcium 10 MG Tab PO SCH (20:00)
[2023-08-27] MEDS ORDERED: Levodopa/Carbidopa 100 / 25 MG Tab PO SCH (20:00)
[2023-08-27] MEDS ORDERED: Levodopa/Carbidopa 100/25 MG Tab *CR PO SCH (20:00)
[2023-08-27] MEDS ORDERED: Lactobacil 2-S.Thermo-Bifido 1 1 Cap PO SCH (21:00)
[2023-08-27] MEDS ORDERED: oxyBUTYnin chloride 5 MG TAB PO SCH (21:00)
[2023-08-28] MEDS ORDERED: Piperacillin/Tazobactam Sod 3.375 GM in NS 100 ML IV SCH
[2023-08-28] MEDS ORDERED: Acetaminophen 160MG / 5ML 10.15 UDC PO SCH
[2023-08-28 05:57] LABS: BASOPHILS ABSOLUTE AUTO 0.04 K/mm3 (0.00-0.23); BASOPHILS PERCENT AUTO 1 % (0-2); EOSINOPHILS ABSOLUTE AUTO 0.29 K/mm3 (0.00-0.68); EOSINOPHILS PERCENT AUTO 5 % (0-6); Hematocrit 35.9 % (33.0-51.0); Hemoglobin 12.2 g/dL (11.5-16.0); IMMATURE GRAN ABSOLUTE AUTO 0.01 K/mm3 (0.00-0.10); IMMATURE GRAN PERCENT AUTO 0 % (0-1); LYMPHOCYTES ABSOLUTE AUTO 1.63 K/mm3 (0.84-5.20); LYMPHOCYTES PERCENT AUTO 26 % (21-46); MONOCYTES ABSOLUTE AUTO 0.52 K/mm3 (0.16-1.47); MONOCYTES PERCENT AUTO 8 % (4-13); Mean Corpuscular HGB 31.3 pg (26.0-34.0); Mean Corpuscular Volume 92 fL (80-100); Mean Platelet Volume 10.1 fL (9.1-12.4); NEUTROPHILS ABSOLUTE AUTO 3.86 K/mm3 (1.96-9.15); NEUTROPHILS PERCENT AUTO 61 % (41-73); Platelet Count 204 K/mm3 (150-400); RDW Coefficient Variation 14.2 % (11.7-14.2); RDW Standard Deviation 47.3 fL (35.1-46.3); White Blood Cell Count 6.35 K/mm3 (4.00-11.30)
[2023-08-28] MEDS ORDERED: Levothyroxine Sodium 0.125 MG Tab PO SCH (06:00)
[2023-08-28 06:16] VITALS: BP 115/69
--- NOTE | 2023-08-28 06:24 | NUR ---
SHIFT SUMMARY PT A&O TO SELF ONLY, VSS, TOLERATING PO, VOIDING, AND DENIED PAIN. PHYSICAL THERAPY/OT EVAL TBD. CALL LIGHT WITHIN REACH AND PT ABLE TO MAKE NEEDS KNOWN.
[2023-08-28 06:30] LABS: Anion Gap 8 mmol/L (3-11); Blood Urea Nitrogen 11 mg/dL (8-24); Bun/Creatinine Ratio 17.4 (12.0-20.0); CO2, Blood 30 mmol/L (21-32); Calcium, Blood 9.2 mg/dL (8.5-10.1); Chloride, Blood 107 mmol/L (98-108); Creatinine, Blood 0.63 mg/dL (0.40-1.00); Glomerular Filtration Rate 90 (60-); Glucose, Blood 100 mg/dL (70-99); Magnesium, Blood 2.5 mg/dL (1.6-2.4); Phosphorus, Blood 3.7 mg/dL (2.5-4.9); Potassium, Blood 3.8 mmol/L (3.5-5.5); Sodium, Blood 141 mmol/L (136-145)
[2023-08-28] MEDS ORDERED: Levodopa/Carbidopa 100 / 25 MG Tab PO SCH (08:00)
[2023-08-28] MEDS ORDERED: buPROPion HCL 150 MG TAB.SR.12H PO SCH (08:00)
[2023-08-28] MEDS ORDERED: Gabapentin 300 MG Cap PO SCH (08:00)
[2023-08-28 08:01] VITALS: BP 116/75
[2023-08-28] MEDS ORDERED: Enoxaparin 40 MG/0.4 ML SYR SC SCH (09:00)
[2023-08-28] MEDS ORDERED: NS 250 ML IV PRN (11:10)
[2023-08-28] MEDS ORDERED: Levodopa/Carbidopa 100/25 MG Tab *CR PO SCH (16:00)
--- NOTE | 2023-08-28 17:20 | NUR ---
Pt. is awake and recognized this telephone answerer from the community when she welcomed my visit. Pt. is pleasant and we considered matters of nain and belief. Pt. displayed mild anxiety over her condition. Pastoral care and empathetic listening are given. Pt. eventually displays moments of stiven and comfort, and verbalized that she was encouraged by the pastoral visit. Prayed with the Pt. Pt. verbalized gratitude for the spiritual care visit. WIll remain available to the Pt. and family.
[2023-08-28 17:28] VITALS: BP 123/76
--- NOTE | 2023-08-28 18:34 | NUR ---
SHIFT SUMMARY DRESSING TO RLE CHANGED AND XEROFOAM WITH NONADHERENT DRESSING WRAPPED WITH KERLEX AND EMMA WRAP APPLIED. PT UP TO BATHROOM WITH 1 PERSON ASSIST USING FWW. PLAN FOR SNF TOMORROW. STATES SHE IS ATTEMPTING TO EAT MUCH SHE CAN FROM HER MEALS IN ATTEMPT TO GAIN WEIGHT. HEART RATE IN 110'S NOST OF THE DAY.
--- NOTE | 2023-08-28 18:42 | NUR ---
SHIFT SUMMARY PTS SISTER AT BEDSIDE THROUGH THE SHIFT. ASSISTE WITH MEDS AND FEEDING PT. PT FOLLOWS A VERY REGIMENTED MEDICATION TIME AT HOME AND ATTEMPTED TO FOLLOW SAID SCHEDULE. PT REPORTS BACK AND THEN LATER SHOULDER PAIN WHICH OXYCODONE GIVEN FOR. SISTER ACCOMODATING TO PTS NEEDS AND ASKING FOR HELP WITH ITEMS SHE IS UNABLE TO DO.
[2023-08-28 20:04] VITALS: BP 111/69
--- NOTE | 2023-08-29 03:16 | NUR ---
SHIFT SUMMARY 78 YR F ADMITTED ON 08/27/23. DNR. NO ACUTE CHANGES THIS SHIFT. PT SISTER AT BEDSIDE AT BEGINNING OF SHIFT AND UNTIL EVENING MEDS WERE PASSED. SISTER IS VERY PARTICULAR ABOUT THE TIME MEDS ARE GIVEN AND ONLY HAS A 10 MINUTE WINDOW IN WHICH SHE WANTS THE MEDS TO BE PASSED. PT SISTER (LUIS) ADVISED THIS NURSE THAT IF MEDS WERE NOT EXACTLY IN THE 10 MINUTE TIME FRAME THAT SHE WOULD GIVE THE PTS MEDS HERSELF FROM THE HOME MEDS THAT SHE BROUGHT WITH HER. LUIS WAS ADVISED THAT ALL MEDS TAKEN MUST BE DOCUMENTED AND THAT IT WAS BEST TO LEAVE IT TO THE RN. AFTER LUIS LEFT, THE PT SLEPT FOR MOST OF THE REST OF THE NIGHT. SHE IS VERY SOFT SPOKEN AND HARD TO UNDERSTAND. SIPRAPUBIC CATHETER DRAINING WELL.
[2023-08-29 04:25] VITALS: BP 134/83
[2023-08-29 05:50] LABS: BASOPHILS ABSOLUTE AUTO 0.04 K/mm3 (0.00-0.23); BASOPHILS PERCENT AUTO 1 % (0-2); EOSINOPHILS ABSOLUTE AUTO 0.31 K/mm3 (0.00-0.68); EOSINOPHILS PERCENT AUTO 4 % (0-6); Hematocrit 34.5 % (33.0-51.0); IMMATURE GRAN ABSOLUTE AUTO 0.02 K/mm3 (0.00-0.10); IMMATURE GRAN PERCENT AUTO 0 % (0-1); LYMPHOCYTES ABSOLUTE AUTO 1.85 K/mm3 (0.84-5.20); LYMPHOCYTES PERCENT AUTO 25 % (21-46); MONOCYTES ABSOLUTE AUTO 0.47 K/mm3 (0.16-1.47); MONOCYTES PERCENT AUTO 6 % (4-13); Mean Corpuscular HGB 31.7 pg (26.0-34.0); Mean Corpuscular HGB Conc 34.8 g/dL (31.5-36.5); Mean Corpuscular Volume 91 fL (80-100); Mean Platelet Volume 9.9 fL (9.1-12.4); NEUTROPHILS ABSOLUTE AUTO 4.68 K/mm3 (1.96-9.15); NEUTROPHILS PERCENT AUTO 64 % (41-73); Platelet Count 202 K/mm3 (150-400); RDW Coefficient Variation 13.8 % (11.7-14.2); RDW Standard Deviation 46.3 fL (35.1-46.3); Red Blood Cell Count 3.78 M/mm3 (3.80-5.20); White Blood Cell Count 7.37 K/mm3 (4.00-11.30)
[2023-08-29 06:26] LABS: Anion Gap 7 mmol/L (3-11); Blood Urea Nitrogen 12 mg/dL (8-24); Bun/Creatinine Ratio 20.1 (12.0-20.0); CO2, Blood 30 mmol/L (21-32); Calcium, Blood 9.2 mg/dL (8.5-10.1); Chloride, Blood 111 mmol/L (98-108); Glomerular Filtration Rate 91 (60-); Glucose, Blood 98 mg/dL (70-99); Magnesium, Blood 2.3 mg/dL (1.6-2.4); Phosphorus, Blood 3.4 mg/dL (2.5-4.9); Potassium, Blood 3.9 mmol/L (3.5-5.5); Sodium, Blood 144 mmol/L (136-145)
[2023-08-29 07:58] VITALS: BP 132/83
--- NOTE | 2023-08-29 13:17 | NUR ---
Pt. is awake in bed and welcomes my visit. Friend is at bedside. Facilitated an update with the Pt. Friend excused herself. Pt. began to display evidence of tears. Facilitated more life review and with pastoral theraputic listening sought to bring a calming presence. More pastoral middle school guidance counselor is given, and Pt. displayed evidence of understanding a hope. Prayed for Pt. Pt. verbalized gratitude for the [place] [facility] visit and welcomed this probate lawyer to return.
[2023-08-29 16:15] VITALS: BP 123/84
[2023-08-29] MEDS ORDERED: Bisacodyl 10 MG Supp PR PRN (16:40)
[2023-08-29] MEDS ORDERED: Acetaminophen 325 MG TABLET PO SCH (16:45)
--- NOTE | 2023-08-29 18:38 | NUR ---
SHIFT SUMMARY PT WENT TO BARIUM SWALLOW THIS MORNING AND WAS CHANGED TO NECTAR THICK LIQUIDS. PT TEARFUL THIS AFTERNOON DUE TO CHANGE IN THICKNESS OF LIQUIDS STATING SHE JUST WANTS A DRINK OF WATER OR ICE WATER. DID SPEAK WITH HER ABOUT TAKING HER MEDS CRUSHED IN PUDDING AND SHE WAS AGREEABLE TO IT. STATES SHE FEELS VERY CONSTIPATED AND OBTAINED A NEW ORDER FOR SUPPOSITORY DUE TO PT STATING SHE FEELS LIKE "ITS RIGHT THERE" SUPPOSITORY GIVEN BUT NOTHING FELT AT THE END OF THE FINGER. HAS BEEN FEELING LIKE STOOL IS COMING OUT SINCE BUT NO STOOL OUT YET. SISTER AT BEDSIDE THROUGH THE SHIFT HELPING WITH CARE. BEDBATH GIVEN THIS EVENING.
[2023-08-29 20:00] VITALS: BP 129/78
[2023-08-29] MEDS ORDERED: Polyethylene Glycol 3350 17 gm PO SCH (21:00)
[2023-08-29] MEDS ORDERED: Docusate Sodium/Senna 1 Tab PO SCH (21:00)
[2023-08-30 04:44] VITALS: BP 122/71
--- NOTE | 2023-08-30 04:53 | NUR ---
SHIFT SUMMARY 78 YR F ADMITTED ON 08/27/23. DNR. PT C/O CONSTANT BACK PAIN AND IS HAVING A VERY HARD TIME GETTING COMFORTABLE. SHE WILL ASK TO HAVE THE HEAD OF THE BED RAISED AND LOWERED OVER AND OVER IN AN EFFORT TO GET COMFORTABLE. MEDICATED PER EMAR AND APPEARS TO SLEEP OFF AND ON. PT HAD VERY LARGE, RUNNY BM THIS A.M. AFTER BEING CONSTIPATED FOR DAYS.
[2023-08-30 05:24] LABS: BASOPHILS ABSOLUTE AUTO 0.05 K/mm3 (0.00-0.23); BASOPHILS PERCENT AUTO 0 % (0-2); EOSINOPHILS ABSOLUTE AUTO 0.19 K/mm3 (0.00-0.68); EOSINOPHILS PERCENT AUTO 1 % (0-6); Hemoglobin 12.8 g/dL (11.5-16.0); IMMATURE GRAN ABSOLUTE AUTO 0.06 K/mm3 (0.00-0.10); IMMATURE GRAN PERCENT AUTO 0 % (0-1); LYMPHOCYTES ABSOLUTE AUTO 1.98 K/mm3 (0.84-5.20); LYMPHOCYTES PERCENT AUTO 13 % (21-46); MONOCYTES ABSOLUTE AUTO 0.87 K/mm3 (0.16-1.47); MONOCYTES PERCENT AUTO 6 % (4-13); Mean Corpuscular HGB 31.9 pg (26.0-34.0); Mean Corpuscular HGB Conc 34.6 g/dL (31.5-36.5); Mean Corpuscular Volume 92 fL (80-100); Mean Platelet Volume 9.9 fL (9.1-12.4); NEUTROPHILS ABSOLUTE AUTO 12.29 K/mm3 (1.96-9.15); NEUTROPHILS PERCENT AUTO 80 % (41-73); Platelet Count 217 K/mm3 (150-400); RDW Coefficient Variation 13.8 % (11.7-14.2); RDW Standard Deviation 47.1 fL (35.1-46.3); Red Blood Cell Count 4.01 M/mm3 (3.80-5.20); White Blood Cell Count 15.44 K/mm3 (4.00-11.30)
[2023-08-30 15:23] VITALS: BP 133/78
--- NOTE | 2023-08-30 18:27 | NUR ---
SHIFT SUMMARY PATIENT ALERT AND INTERACTIVE. SPEECH SOFT. FAMILY AT BEDSIDE AND DICTATING PATIENT CARE. PATIENT CONTINUES TO HAVE BACK AND NECK PAIN. PAIN CHRONIC. DISCUSSED WITH FAMILY AND PATIENT THAT NOT ALL MEDS CAN BE CRUSHED. FAMILY AND PATIENT VERBALIZED UNDERSTANDING. DISCHARGE PLAN ARRANGED WITH CASE MANAGEMENT AND DR ROMERO. PATIENT TO GO HOME AND TRANSITION TO HOSPICE WHEN AVAILABLE. PATIENT HAS END STAGE PARKINSONS AND NOW ASPIRATING. PROVIDED EDUCATION RELATED TO HOSPICE. PATIENT MEDICATED NEEDED PER ORDERS FOR PAIN.
[2023-08-30 21:05] VITALS: BP 124/59
[2023-08-31 03:37] VITALS: BP 131/83
--- NOTE | 2023-08-31 05:24 | NUR ---
SHIFT SUMMARY 78 YR F ADMITTED ON 08/27/23. DNR, COMFORT CARE. NO ACUTE CHANGES THIS SHIFT. PT WAS MEDICATED TWICE THIS SHIFT FOR PAIN. SUPRAPUBIC CATHETER DRAINING WELL. URINE IS CLOUDY WITH SOME THAT LOOKED THOUGH IT HAS PUS IN IT. PT STATES SHE IS LOOKING FORWARD TO GOING HOME TODAY.
[2023-08-31 07:19] VITALS: BP 126/82
--- NOTE | 2023-08-31 09:54 | NUR ---
Spiritual Care Visit. Pt. is being prepared for discharge home on hospice. Prayed with pt. at bedside. In tears the Pt. verbalized gratitude for the spiritual care she has received.
--- NOTE | 2023-08-31 10:53 | NUR ---
[id number] PT DC IN STABLE CONDITION. PT LEFT WITH ALL BELONGINGS. ALL DC PAPERWORK/INSTRUCTIONS DISCUSSED WITH PATIENT AND SISTER. PT LEFT VIA TRANSPORT FOR HOME.
== END 2023-08-31 10:30 | disposition home health service (06) | DRG 699 ==
LOC: ER 12:33 → MEDS 17:27
PROVIDERS: Emergency Medicine; ADMIT Family Medicine
DX: T83.518A Infection and inflammatory reaction due to other urinary catheter, initial encounter (principal); N39.0 Urinary tract infection, site not specified; G20.A1 Parkinson's disease without dyskinesia, without mention of fluctuations; Z66 Do not resuscitate; Z51.5 Encounter for palliative care; M19.90 Unspecified osteoarthritis, unspecified site; E03.9 Hypothyroidism, unspecified; E78.5 Hyperlipidemia, unspecified; F32.A Depression, unspecified; G89.29 Other chronic pain; F41.1 Generalized anxiety disorder; M79.7 Fibromyalgia; G62.9 Polyneuropathy, unspecified; R33.9 Retention of urine, unspecified; Y84.6 Urinary catheterization as the cause of abnormal reaction of the patient, or of later complication, without mention of misadventure at the time of the procedure; Z88.8 Allergy status to other drugs, medicaments and biological substances; Z88.1 Allergy status to other antibiotic agents; Z79.82 Long term (current) use of aspirin; Z79.899 Other long term (current) drug therapy; Z79.890 Hormone replacement therapy; Z98.890 Other specified postprocedural states; Z90.710 Acquired absence of both cervix and uterus
CPT/HCPCS: 36415; 74177; 74230; 80053; 80069; 81001; 83735; 85025; 87077; 87086; 87186; 92526; 92610; 92611; 96365-59; 97110; 97112; 97162; 97165; 97530; 99285-25; A9270; J1650; J2270; J2543; Q9967